=== PATIENT | male | born 1990 | race Asian ===

== ENCOUNTER 2017-01-21 04:45 | Emergency (ER) | payer OTHER ==
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
== END 2017-01-21 07:19 | disposition home or self-care (01) ==
LOC: CED 04:45
DX: S63.501A Unspecified sprain of right wrist, initial encounter (principal); S39.012A Strain of muscle, fascia and tendon of lower back, initial encounter; S20.212A Contusion of left front wall of thorax, initial encounter; V49.00XA Driver injured in collision with unspecified motor vehicles in nontraffic accident, initial encounter
CPT/HCPCS: 70450; 71020; 72100; 73110; 99284